=== PATIENT | female | born 1970 | race African-American/Black ===

== ENCOUNTER → 2019-03-07 | Outpatient (CLI) | payer BC ==
[2019-03-07 15:58] LABS: BASOPHILS % 0.8 % (0.0-2.0); EOSINOPHILS % 4.7 % (0.0-5.0); HEMATOCRIT. 38.1 % (36.0-48.0); HEMOGLOBIN. 12.9 g/dL (12.0-16.0); LYMPHOCYTES % 26.1 % (20.0-50.0); MEAN CORPUSCULAR HEMOGLOBIN 29.8 pg (28.0-32.0); MEAN CORPUSCULAR VOLUME 88.1 fL (81.0-99.0); MEAN PLATELET VOLUME 7.7 fl (7.4-10.4); MONOCYTES % 7.6 % (2.0-8.0); NEUTROPHILS % 60.8 % (40.0-76.0); PLATELET 324 x1000/uL (130-400); RED BLOOD CELL COUNT 4.33 mill/uL (4.2-5.4); RED CELL DISTRIBUTION WIDTH 13.1 % (11.6-14.6)
[2019-03-07 16:02] LABS: CHLORIDE 106 mEq/L (98-107)
[2019-03-07 16:03] LABS: CLARITY URINE CLEAR (CLEAR); COLOR URINE YELLOW (YELLOW); KETONES URINE NEGATIVE (NEGATIVE); LEUKOCYTE ESTERASE URINE NEGATIVE (NEGATIVE); NITRITE URINE NEGATIVE (NEGATIVE); OCCULT BLOOD URINE NEGATIVE (NEGATIVE); PROTEIN URINE NEGATIVE (NEGATIVE); SPECIFIC GRAVITY URINE 1.024 (1.005-1.030); UROBILINOGEN URINE 0.2 E.U./dL (0.2-1.0)
[2019-03-07 16:09] LABS: LDL CHOLESTEROL 120 mg/dL (5-100); TOTAL IRON BINDING CAPACITY 316 ug/dL (250-450)
[2019-03-07 16:10] LABS: HDL CHOLESTEROL 31 mg/dL (40-59)
[2019-03-07 16:22] LABS: FERRITIN 36 ng/mL (10-291)
[2019-03-07 16:33] LABS: VITAMIN B12 SERUM 798 pg/mL (211-911)
== END | disposition home or self-care (01) ==
LOC: LAB 13:22 → EEVIPCON 13:22
PROVIDERS: ATTEND Internal Medicine Geriatric Medicine
DX: Z00.01 Encounter for general adult medical examination with abnormal findings (principal); N39.0 Urinary tract infection, site not specified; R73.09 Other abnormal glucose
CPT/HCPCS: 36415; 80061; 82306; 82607; 82728; 83036; 83540; 83550; 84443; 86592

== ENCOUNTER → 2019-05-18 | Outpatient (CLI) | payer BC | END | disposition home or self-care (01) | LOC: RAD 15:33 | PROVIDERS: ATTEND Internal Medicine Geriatric Medicine | DX: M79.671 Pain in right foot (principal) | CPT/HCPCS: 73562; 73590; 73630 ==

== ENCOUNTER → 2019-07-27 | Outpatient (CLI) | payer BC ==
[2019-07-27 17:01] LABS: CHLORIDE 100 mEq/L (98-107)
== END | disposition home or self-care (01) ==
LOC: LAB 16:23
PROVIDERS: ATTEND Internal Medicine Geriatric Medicine
DX: R73.09 Other abnormal glucose (principal)
CPT/HCPCS: 36415; 83036; 83735; 84443

== ENCOUNTER → 2019-07-31 | Outpatient (CLI) | payer BC | END | disposition home or self-care (01) | LOC: MRI 12:37 | PROVIDERS: ATTEND Internal Medicine Geriatric Medicine | DX: I31.3 Pericardial effusion (noninflammatory) (principal); R60.9 Edema, unspecified; I11.9 Hypertensive heart disease without heart failure | CPT/HCPCS: 73718; 93306 ==